=== PATIENT | male | born 1955 | race African-American/Black ===

== ENCOUNTER 2021-04-17 10:53 | Inpatient (IN) ==
[2021-04-17 15:49] LABS: Basophils % 0.4 % (0.0-0.8); Eosinophils # 0.2 10*3/uL (0.0-0.87); Hemoglobin 8.4 GM/DL (14.0-18.0); Immature Granulocytes % 0.5 %; Immature Granulocytes Absolute 0.05 #; Lymphocytes # 1.3 10*3/uL (1.4-4.0); Lymphocytes % 14.3 % (21.2-54.2); Mean Corpuscular HGB Conc 25.5 GM/DL (32-36); Mean Corpuscular Volume 75.7 FL (87-102); Mean Platelet Volume 9.1 FL (9.6-12.0); Monocytes % 6.1 % (1.7-12.7); Neutrophils % 76.7 % (38.7-73.9); Platelet Count 569 T/CUMM (130-400); Red Blood Count 4.36 MC/CUMM (3.8-5.5); Red Cell Distribution Width 20.8 % (9.3-17.3); White Blood Count 9.2 T/CUMM (4-12)
[2021-04-17 16:14] LABS: Albumin 2.4 G/DL (3.4-5.0); Bilirubin,Total 0.6 MG/DL (0.20-1.00); Calcium 9.2 MG/DL (8.5-10.1); Osmolality,Calculated 281.8 MOS/KG (273-304); Potassium 5.2 MMOL/L (3.5-5.1); Total Protein 8.2 G/DL (6.4-8.2)
[2021-04-17] MEDS ORDERED: GLUCAGON 1 MG VIAL IM PRN (17:38)
[2021-04-17] MEDS ORDERED: DEXTROSE 50% 25 GM/50 ML VIAL IV PRN (17:38)
[2021-04-17] MEDS ORDERED: SODIUM POLYSTYRENE SULFATE 15 GM/60 ML BOTTLE PO ONE (18:33)
[2021-04-17] MEDS ORDERED: SODIUM POLYSTYRENE SULFATE 15 GM/60 ML BOTTLE PO STA (18:33)
[2021-04-17 20:04] LABS: Bacteria,Urine Occasional /HPF (Few); Bilirubin,Urine Negative (Negative); Blood, Urine Moderate mg/dL (Negative); Glucose,Urine (UA) Negative (Negative); Hyaline Casts,Urine 1 /LPF (0-3); Ketones,Urine Negative (Negative); Mucus,Urine Occasional /LPF (Occasional); Nitrite,Urine Negative (Negative); Protein,Urine 30 MG/DL; RBC,Urine 3 /HPF (0-4); Squamous Epithelial Cell,Urine Occasional /HPF (0-10); Urine Appearance CLEAR (Clear); Urine Color Yellow (Yellow); Urine Specific Gravity 1.016 (1.001-1.035); Urine Urobilinogen < 2.0 EU/DL (0.2-1.0)
[2021-04-17] MEDS: ENOXAPARIN 40 MG/0.4 ML SYRINGE SUBCUT SCH (20:22)
[2021-04-17] MEDS: carvediloL 12.5 MG TABLET PO SCH (20:22)
[2021-04-17] MEDS: SODIUM CHLORIDE 0.9% 1,000 ML IV SCH (20:23)
[2021-04-17] MEDS: ONDANSETRON 4 MG/2 ML VIAL IV PRN (21:25)
[2021-04-18 07:41] LABS: % Iron Saturation 14.8 % (18-50); Ferritin 385.7 ng/ml (26-388)
[2021-04-18 08:01] LABS: Calcium 9.1 MG/DL (8.5-10.1); Osmolality,Calculated 288.4 MOS/KG (273-304); Potassium 4.8 MMOL/L (3.5-5.1); Risk Ratio 2.77; Thyroid Stimulating Hormone 1.91 uIU/ml (0.358-3.74); VLDL Cholesterol 9.6 MG/DL
[2021-04-18 08:06] LABS: Sedimentation Rate-Westergren 55 MM/HR (0-20)
[2021-04-18 08:22] LABS: Basophils % 0.3 % (0.0-0.8); Eosinophils # 0.2 10*3/uL (0.0-0.87); Eosinophils % 2.4 % (0.00-10.9); Hematocrit 29.1 VOL% (42.0-52.0); Hemoglobin 7.7 GM/DL (14.0-18.0); Immature Granulocytes % 0.6 %; Immature Granulocytes Absolute 0.04 #; Lymphocytes # 1.2 10*3/uL (1.4-4.0); Lymphocytes % 18.1 % (21.2-54.2); Mean Corpuscular HGB Conc 26.5 GM/DL (32-36); Mean Corpuscular Volume 74.2 FL (87-102); Mean Platelet Volume 8.8 FL (9.6-12.0); Monocytes % 8.7 % (1.7-12.7); Neutrophils % 69.9 % (38.7-73.9); Platelet Count 516 T/CUMM (130-400); Red Blood Count 3.92 MC/CUMM (3.8-5.5); Red Cell Distribution Width 20.8 % (9.3-17.3); White Blood Count 6.6 T/CUMM (4-12)
[2021-04-18 08:27] LABS: Platelet Estimate Increased
[2021-04-18 08:28] LABS: Anisocytosis 2+; Hypochromasia Slight
[2021-04-18] MEDS: PANTOPRAZOLE 40 MG TABLET PO SCH (09:09)
[2021-04-18] MEDS: carvediloL 12.5 MG TABLET PO SCH ×2 (09:09→20:47)
[2021-04-18] MEDS: SODIUM CHLORIDE 0.9% 1,000 ML IV SCH (09:14)
[2021-04-18 14:23] LABS: Folate 10.13 NG/ML (5.38-24.0); Vitamin B12 596 PG/ML (211-911)
[2021-04-18] MEDS: ENOXAPARIN 40 MG/0.4 ML SYRINGE SUBCUT SCH (18:50)
[2021-04-19] MEDS: SODIUM CHLORIDE 0.9% 1,000 ML IV SCH ×2 (03:59→11:00)
[2021-04-19 06:46] LABS: Calcium 8.9 MG/DL (8.5-10.1); Osmolality,Calculated 287.4 MOS/KG (273-304); Potassium 5.2 MMOL/L (3.5-5.1)
[2021-04-19 06:47] LABS: Basophils % 0.3 % (0.0-0.8); Eosinophils # 0.2 10*3/uL (0.0-0.87); Eosinophils % 3.3 % (0.00-10.9); Immature Granulocytes % 0.5 %; Immature Granulocytes Absolute 0.03 #; Lymphocytes # 1.1 10*3/uL (1.4-4.0); Lymphocytes % 18.8 % (21.2-54.2); Mean Corpuscular HGB Conc 26.4 GM/DL (32-36); Mean Corpuscular Volume 73.7 FL (87-102); Mean Platelet Volume 9.1 FL (9.6-12.0); Monocytes % 10.6 % (1.7-12.7); Neutrophils % 66.5 % (38.7-73.9); Platelet Count 467 T/CUMM (130-400); Red Cell Distribution Width 20.6 % (9.3-17.3); White Blood Count 6.1 T/CUMM (4-12)
[2021-04-19 06:51] LABS: Hemoglobin 7.4 GM/DL (14.0-18.0)
[2021-04-19] MEDS: carvediloL 12.5 MG TABLET PO SCH ×2 (09:01→21:21)
[2021-04-19] MEDS: PANTOPRAZOLE 40 MG TABLET PO SCH (09:01)
[2021-04-19] MEDS ORDERED: PNEUMOCOCCAL VACCINE (23 VALENT) 0.5 ML VIAL IM ONE (11:28)
[2021-04-19] MEDS ORDERED: SODIUM POLYSTYRENE SULFATE 15 GM/60 ML BOTTLE PO ONE (11:32)
[2021-04-19] MEDS: ONDANSETRON 4 MG/2 ML VIAL IV PRN (17:05)
[2021-04-19] MEDS: ENOXAPARIN 40 MG/0.4 ML SYRINGE SUBCUT SCH (17:55)
[2021-04-20 05:35] LABS: Osmolality,Calculated 288.3 MOS/KG (273-304); Potassium 5.1 MMOL/L (3.5-5.1)
[2021-04-20 05:58] LABS: Basophils % 0.4 % (0.0-0.8); Eosinophils # 0.3 10*3/uL (0.0-0.87); Eosinophils % 3.6 % (0.00-10.9); Hematocrit 28.8 VOL% (42.0-52.0); Hemoglobin 7.7 GM/DL (14.0-18.0); Immature Granulocytes % 0.4 %; Immature Granulocytes Absolute 0.03 #; Lymphocytes # 1.2 10*3/uL (1.4-4.0); Lymphocytes % 17.2 % (21.2-54.2); Mean Corpuscular HGB Conc 26.7 GM/DL (32-36); Mean Corpuscular Volume 74.8 FL (87-102); Mean Platelet Volume 9.1 FL (9.6-12.0); Monocytes % 9.2 % (1.7-12.7); Neutrophils % 69.2 % (38.7-73.9); Platelet Count 454 T/CUMM (130-400); Red Blood Count 3.85 MC/CUMM (3.8-5.5); Red Cell Distribution Width 20.6 % (9.3-17.3); White Blood Count 6.9 T/CUMM (4-12)
[2021-04-20 06:25] LABS: Hypochromasia 1+; Microcytosis 1+
[2021-04-20 06:26] LABS: Platelet Estimate Increased; Polychromasia Slight
[2021-04-20] MEDS ORDERED: SODIUM POLYSTYRENE SULFATE 15 GM/60 ML BOTTLE PO STA (07:46)
[2021-04-20 08:35] LABS: Hemoglobin A1 (Alkaline) 98.1 % (96.5-98.5); Hemoglobin A2 (Alkaline) 1.9 % (1.5-3.5)
[2021-04-20] MEDS: PANTOPRAZOLE 40 MG TABLET PO SCH (09:29)
[2021-04-20] MEDS: carvediloL 12.5 MG TABLET PO SCH ×2 (09:29→20:51)
[2021-04-20 09:33] LABS: INR 1.2; PT Patient Result 13.1 SECS (10.5-12.0)
[2021-04-20] MEDS ORDERED: DIAZEPAM 5 MG TABLET PO ONE (12:56)
[2021-04-21 05:58] LABS: Calcium 9.3 MG/DL (8.5-10.1); Osmolality,Calculated 277.8 MOS/KG (273-304); Potassium 4.5 MMOL/L (3.5-5.1)
[2021-04-21 06:02] LABS: Basophils % 0.3 % (0.0-0.8); Eosinophils # 0.2 10*3/uL (0.0-0.87); Eosinophils % 3.5 % (0.00-10.9); Hematocrit 29.5 VOL% (42.0-52.0); Hemoglobin 7.8 GM/DL (14.0-18.0); Immature Granulocytes % 0.6 %; Immature Granulocytes Absolute 0.04 #; Lymphocytes # 1.3 10*3/uL (1.4-4.0); Lymphocytes % 20.3 % (21.2-54.2); Mean Corpuscular HGB Conc 26.4 GM/DL (32-36); Mean Corpuscular Volume 74.9 FL (87-102); Monocytes % 9.2 % (1.7-12.7); Neutrophils % 66.1 % (38.7-73.9); Platelet Count 385 T/CUMM (130-400); Red Blood Count 3.94 MC/CUMM (3.8-5.5); Red Cell Distribution Width 20.5 % (9.3-17.3); White Blood Count 6.2 T/CUMM (4-12)
[2021-04-21 07:04] LABS: Anisocytosis 1+; Hypochromasia 1+; Microcytosis 1+
[2021-04-21 07:05] LABS: Platelet Estimate Normal
[2021-04-21 07:40] LABS: Eosinophils 5 % (0-10); Lymphocytes 21 % (20-55); Segmented Neutrophils 70 % (50-85); Total Cells Counted 100
[2021-04-21] MEDS: PANTOPRAZOLE 40 MG TABLET PO SCH (09:39)
[2021-04-21] MEDS: carvediloL 12.5 MG TABLET PO SCH (09:39)
[2021-04-21 12:23] VITALS: BP 126/67
== END 2021-04-21 13:30 | disposition home or self-care (01) | DRG 687 ==
LOC: N.ED 10:53 → N.EDINP 17:38 → N.4E 19:17
PROVIDERS: ADMIT Internal Medicine; ATTEND Internal Medicine

== ENCOUNTER 2021-08-02 11:57 | Observation (INO) ==
[2021-08-02] MEDS ORDERED: INSULIN REGULAR 100 UNIT/ML IV STA ×2 (13:49→16:32)
[2021-08-02] MEDS ORDERED: SODIUM BICARBONATE 50 MEQ/50 ML VIAL IV STA ×2 (13:49→16:33)
[2021-08-02] MEDS ORDERED: DEXTROSE 50% 25 GM/50 ML VIAL IV STA ×2 (13:49→16:32)
[2021-08-02] MEDS ORDERED: CALCIUM CHLORIDE 1,000 MG/10 ML SYRINGE IV STA ×2 (13:49→16:32)
[2021-08-02] MEDS ORDERED: SODIUM ZIRCONIUM CYCLOSILICATE 10 GM PACK PO STA ×2 (13:52→16:03)
[2021-08-02 15:52] LABS: Osmolality,Calculated 278.2 MOS/KG (273-304)
[2021-08-02 15:59] LABS: Basophils % 0.3 % (0.0-0.8); Eosinophils # 0.2 10*3/uL (0.0-0.87); Eosinophils % 3.1 % (0.00-10.9); Hematocrit 34.4 VOL% (42.0-52.0); Immature Granulocytes % 0.4 %; Immature Granulocytes Absolute 0.03 #; Lymphocytes # 1.2 10*3/uL (1.4-4.0); Lymphocytes % 15.1 % (21.2-54.2); Mean Corpuscular HGB Conc 26.2 GM/DL (32-36); Mean Corpuscular Volume 76.1 FL (87-102); Mean Platelet Volume 9.6 FL (9.6-12.0); Monocytes % 6.1 % (1.7-12.7); Platelet Count 528 T/CUMM (130-400); Red Blood Count 4.52 MC/CUMM (3.8-5.5); Red Cell Distribution Width 19.7 % (9.3-17.3); White Blood Count 7.8 T/CUMM (4-12)
[2021-08-02 16:13] LABS: Anisocytosis 1+; Platelet Estimate Increased
[2021-08-02] MEDS ORDERED: ONDANSETRON 4 MG/2 ML VIAL IV PRN (16:41)
[2021-08-02] MEDS ORDERED: ACETAMINOPHEN 325 MG TABLET PO PRN (16:41)
[2021-08-02] MEDS ORDERED: DOCUSATE SODIUM 100 MG CAPSULE PO PRN (16:41)
[2021-08-02] MEDS ORDERED: hydrALAZINE 20 MG/1 ML VIAL IV PRN (16:41)
[2021-08-02] MEDS ORDERED: GLUCAGON 1 MG VIAL IM PRN (16:41)
[2021-08-02] MEDS ORDERED: DEXTROSE 50% 25 GM/50 ML VIAL IV PRN (16:41)
[2021-08-02] MEDS ORDERED: MELATONIN 3 MG TABLET PO PRN (16:49)
[2021-08-02] MEDS ORDERED: oxyCODONE/ACETAMINOPHEN 5-325 MG TABLET PO PRN (16:52)
[2021-08-02] MEDS ORDERED: ENOXAPARIN 30 MG/0.3 ML SYRINGE SUBCUT SCH (17:00)
[2021-08-02 17:20] LABS: Risk Ratio 2.27; Thyroid Stimulating Hormone 1.44 uIU/ml (0.358-3.74); VLDL Cholesterol 10.4 MG/DL
[2021-08-02] MEDS ORDERED: SODIUM POLYSTYRENE SULFATE 15 GM/60 ML BOTTLE PO ONE (20:00)
[2021-08-02] MEDS ORDERED: carvediloL 25 MG TABLET PO SCH (21:00)
[2021-08-03 06:04] LABS: Calcium 10.2 MG/DL (8.5-10.1); Osmolality,Calculated 283.8 MOS/KG (273-304); Potassium 5.3 MMOL/L (3.5-5.1)
[2021-08-03 06:13] LABS: Basophils % 0.3 % (0.0-0.8); Eosinophils # 0.2 10*3/uL (0.0-0.87); Eosinophils % 3.1 % (0.00-10.9); Immature Granulocytes % 0.3 %; Immature Granulocytes Absolute 0.02 #; Lymphocytes # 1.3 10*3/uL (1.4-4.0); Lymphocytes % 18.3 % (21.2-54.2); Mean Corpuscular HGB Conc 26.5 GM/DL (32-36); Mean Corpuscular Volume 75.4 FL (87-102); Mean Platelet Volume 9.3 FL (9.6-12.0); Monocytes % 7.6 % (1.7-12.7); Neutrophils % 70.4 % (38.7-73.9); Platelet Count 468 T/CUMM (130-400); Red Blood Count 4.11 MC/CUMM (3.8-5.5); Red Cell Distribution Width 19.3 % (9.3-17.3); White Blood Count 6.8 T/CUMM (4-12)
[2021-08-03 06:14] LABS: Hemoglobin 8.2 GM/DL (14.0-18.0)
[2021-08-03] MEDS ORDERED: ASPIRIN EC 81 MG TABLET PO SCH (09:00)
[2021-08-03] MEDS ORDERED: SODIUM ZIRCONIUM CYCLOSILICATE 10 GM PACK PO SCH ×3 (09:00)
[2021-08-03] MEDS ORDERED: PANTOPRAZOLE 40 MG TABLET PO SCH (09:00)
[2021-08-03 09:31] VITALS: BP 134/67
== END 2021-08-03 11:03 | disposition home or self-care (01) ==
LOC: N.ED 11:57 → N.EDINP 11:57 → N.2W 20:04
PROVIDERS: ADMIT Internal Medicine; ATTEND Internal Medicine

== ENCOUNTER 2022-11-04 02:08 | Inpatient (IN) ==
[2022-11-04] MEDS ORDERED: SODIUM CHLORIDE 0.9% 1,000 ML IV STA ×2 (02:27→03:10)
[2022-11-04 02:49] LABS: Basophils % 0.1 % (0.0-0.8); Eosinophils % 0.1 % (0.00-10.9); Hematocrit 30.2 VOL% (42.0-52.0); Hemoglobin 7.2 GM/DL (14.0-18.0); INR 1.2; Immature Granulocytes % 1.4 %; Immature Granulocytes Absolute 0.14 #; Lymphocytes % 9.9 % (21.2-54.2); Mean Corpuscular HGB Conc 23.8 GM/DL (32-36); Mean Corpuscular Volume 90.4 FL (87-102); Monocytes # 0.3 10*3/uL (0.11-0.8); Monocytes % 2.6 % (1.7-12.7); NRBC # 0.34 10*3/uL; Neutrophils % 85.9 % (38.7-73.9); PT Patient Result 12.6 SECS (10.1-12.1); Partial Thromboplastin Time 31.3 SECS (23.7-32.9); Platelet Count 585 T/CUMM (130-400); Red Blood Count 3.34 MC/CUMM (3.8-5.5); Red Cell Distribution Width 22.4 % (9.3-17.3); White Blood Count 10.36 T/CUMM (4-12)
[2022-11-04 02:56] LABS: Arterial Base Excess iSTAT -18 MMOL/L (-2.5-2.5); Arterial Bicarbonate iSTAT 11.3 MMOL/L (20-26); Arterial O2 Saturation iSTAT 94 % (95-100); Arterial PCO2 iSTAT 40 MM HG (35-48); Arterial PO2 iSTAT 98 MM HG (80-95); Arterial Total CO2 iSTAT 13 MMO/L (23-27); Arterial pH iSTAT 7.063 (7.35-7.45)
[2022-11-04] MEDS ORDERED: ETOMIDATE 20 MG/10 ML VIAL IV ONE (02:57)
[2022-11-04] MEDS ORDERED: ROCURONIUM 100 MG/10 ML VIAL IV ONE (02:57)
[2022-11-04] MEDS ORDERED: NOREPINEPHRINE 4 MG/4 ML VIAL IV ONE (02:59)
[2022-11-04] MEDS: NOREPINEPHRINE DRIP 8 MG/250 ML PREMIX IV PRN ×2 (03:03→15:47)
[2022-11-04] MEDS ORDERED: ETOMIDATE 20 MG/10 ML VIAL IV STA (03:11)
[2022-11-04] MEDS ORDERED: ROCURONIUM 100 MG/10 ML VIAL IV STA (03:11)
[2022-11-04 03:16] LABS: Alanine Aminotransferase 13 U/L (16-61); Albumin 1.7 G/DL (3.4-5.0); Alkaline Phosphatase 209 U/L (45-117); Aspartate Amino Transferase 16 U/L (0-37); Bilirubin,Total < 0.39 MG/DL (0.20-1.00); Blood Urea Nitrogen 84 MG/DL (7-18); Calcium 8.3 MG/DL (8.5-10.1); Carbon Dioxide 14 MMOL/L (21-32); Chloride 112 MMOL/L (98-107); Glucose 132 MG/DL (74-106); Osmolality,Calculated 293.4 MOS/KG (273-304); Sodium 133 MMOL/L (136-145); Total Protein 6.7 G/DL (6.4-8.2)
[2022-11-04 03:18] LABS: Potassium > 10.0 MMOL/L (3.5-5.1)
[2022-11-04] MEDS ORDERED: INSULIN REGULAR 100 UNIT/ML IV STA (03:19)
[2022-11-04] MEDS ORDERED: DEXTROSE 50% 25 GM/50 ML VIAL IV STA (03:19)
[2022-11-04] MEDS ORDERED: SODIUM POLYSTYRENE SULFATE 15 GM/60 ML BOTTLE PO STA ×2 (03:19→06:03)
[2022-11-04] MEDS ORDERED: DEXTROSE 50% 25 GM/50 ML SYRINGE IV ONE (03:20)
[2022-11-04] MEDS ORDERED: CALCIUM GLUCONATE RIDER 1,000 MG/50 ML PREMIX IV ONE ×3 (03:21→06:15)
[2022-11-04] MEDS ORDERED: SODIUM BICARBONATE 50 MEQ/50 ML VIAL IV ONE (03:21)
[2022-11-04] MEDS ORDERED: DEXTROSE 50% 25 GM/50 ML SYRINGE IV STA (03:23)
[2022-11-04] MEDS ORDERED: SODIUM BICARBONATE 50 MEQ/50 ML VIAL IV STA (03:23)
[2022-11-04] MEDS ORDERED: ALBUTEROL 2.5 MG/3 ML NEB RESP TX PRN (04:48)
[2022-11-04] MEDS ORDERED: SODIUM CHLORIDE 0.9% 1,000 ML IV SCH (05:00)
[2022-11-04 05:18] LABS: Arterial Base Excess iSTAT -11 MMOL/L (-2.5-2.5); Arterial O2 Saturation iSTAT 100 % (95-100); Arterial PCO2 iSTAT 49 MM HG (35-48); Arterial PO2 iSTAT 433 MM HG (80-95); Arterial Total CO2 iSTAT 19 MMO/L (23-27); Arterial pH iSTAT 7.145 (7.35-7.45)
[2022-11-04] MEDS ORDERED: FUROSEMIDE 100 MG/10 ML VIAL IV STA (05:48)
[2022-11-04] MEDS: SODIUM ZIRCONIUM CYCLOSILICATE 10 GM PACK PO SCH ×3 (06:08→20:50)
[2022-11-04] MEDS: SODIUM BICARB INJ 150 MEQ in DEXTROSE 5% 1,000 ML IV SCH ×2 (06:29→17:54)
[2022-11-04] MEDS ORDERED: SODIUM CHLORIDE 0.9% 1,000 ML IV PRN (06:34)
[2022-11-04] MEDS: ENOXAPARIN 30 MG/0.3 ML SYRINGE SUBCUT SCH (08:06)
[2022-11-04] MEDS: MORPHINE 2 MG/1 ML SYRINGE IV PRN (08:06)
[2022-11-04] MEDS ORDERED: PANTOPRAZOLE 40 MG TABLET PO SCH (09:00)
[2022-11-04] MEDS ORDERED: MIDAZOLAM DRIP 100 MG/100 ML PREMIX IV PRN (10:58)
[2022-11-04] MEDS ORDERED: INSULIN REGULAR 10 UNIT, CALCIUM GLUCONATE 1,000 MG in DEXTROSE 10% 250 ML IV ONE ×2 (11:24→17:45)
[2022-11-04] MEDS ORDERED: FUROSEMIDE 100 MG/10 ML VIAL IV SCH (12:00)
[2022-11-04] MEDS ORDERED: FUROSEMIDE IV SCH (12:00)
[2022-11-04] MEDS ORDERED: SODIUM CHLORIDE 0.9% IV SCH (12:00)
[2022-11-04] MEDS: SODIUM CHLORIDE 0.9% IV SCH ×2 (12:01→20:49)
[2022-11-04] MEDS: FUROSEMIDE IV SCH ×2 (12:01→20:49)
[2022-11-05] MEDS: SODIUM CHLORIDE 0.9% IV SCH (03:53)
[2022-11-05] MEDS: FUROSEMIDE IV SCH (03:53)
[2022-11-05 04:05] LABS: Arterial Base Excess iSTAT -1 MMOL/L (-2.5-2.5); Arterial Bicarbonate iSTAT 22.7 MMOL/L (20-26); Arterial O2 Saturation iSTAT 100 % (95-100); Arterial PCO2 iSTAT 33 MM HG (35-48); Arterial PO2 iSTAT 167 MM HG (80-95); Arterial Total CO2 iSTAT 24 MMO/L (23-27); Arterial pH iSTAT 7.448 (7.35-7.45)
[2022-11-05] MEDS: SODIUM BICARB INJ 150 MEQ in DEXTROSE 5% 1,000 ML IV SCH (04:35)
[2022-11-05] MEDS: NOREPINEPHRINE DRIP 8 MG/250 ML PREMIX IV PRN ×2 (04:37→19:10)
[2022-11-05 06:09] LABS: Alanine Aminotransferase 10 U/L (16-61); Albumin 1.4 G/DL (3.4-5.0); Alkaline Phosphatase 196 U/L (45-117); Aspartate Amino Transferase 11 U/L (0-37); Bilirubin,Total < 0.39 MG/DL (0.20-1.00); Blood Urea Nitrogen 76 MG/DL (7-18); Calcium 8.3 MG/DL (8.5-10.1); Carbon Dioxide 22 MMOL/L (21-32); Chloride 102 MMOL/L (98-107); Glucose 124 MG/DL (74-106); Osmolality,Calculated 291.2 MOS/KG (273-304); Potassium 4.9 MMOL/L (3.5-5.1); Sodium 134 MMOL/L (136-145); Total Protein 6.7 G/DL (6.4-8.2)
[2022-11-05 06:17] LABS: Basophils % 0.2 % (0.0-0.8); Eosinophils # 0.1 10*3/uL (0.0-0.87); Eosinophils % 0.7 % (0.00-10.9); Hematocrit 26.7 VOL% (42.0-52.0); Immature Granulocytes % 1.2 %; Immature Granulocytes Absolute 0.16 #; Lymphocytes % 15.1 % (21.2-54.2); Mean Corpuscular HGB Conc 26.2 GM/DL (32-36); Mean Corpuscular Volume 85.3 FL (87-102); Mean Platelet Volume 9.5 FL (9.6-12.0); Monocytes # 1.3 10*3/uL (0.11-0.8); Monocytes % 9.9 % (1.7-12.7); NRBC # 0.23 10*3/uL; Neutrophils % 72.9 % (38.7-73.9); Red Blood Count 3.13 MC/CUMM (3.8-5.5); Red Cell Distribution Width 22.1 % (9.3-17.3); White Blood Count 13.18 T/CUMM (4-12)
[2022-11-05 06:21] LABS: Platelet Count 451 T/CUMM (130-400)
[2022-11-05] MEDS: SODIUM ZIRCONIUM CYCLOSILICATE 10 GM PACK PO SCH (08:14)
[2022-11-05] MEDS: PANTOPRAZOLE 40 MG VIAL IV SCH (08:14)
[2022-11-05] MEDS: ENOXAPARIN 30 MG/0.3 ML SYRINGE SUBCUT SCH (08:14)
[2022-11-05] MEDS ORDERED: MAGNESIUM SULF RIDER 1 GM/100 ML PREMIX IV ONE (09:21)
[2022-11-05] MEDS: MORPHINE 2 MG/1 ML SYRINGE IV PRN ×2 (09:49→15:51)
[2022-11-05] MEDS: DEXAMETHASONE 0.5 MG TABLET PER TUBE SCH (10:30)
[2022-11-05] MEDS: SODIUM BICARB INJ 50 MEQ in DEXTROSE 5% 1,000 ML IV SCH (10:30)
[2022-11-05] MEDS: MAGNESIUM HYDROXIDE SUSP 30 ML UDCUP PO SCH (20:52)
[2022-11-06] MEDS: MORPHINE 2 MG/1 ML SYRINGE IV PRN ×3 (02:03→17:05)
[2022-11-06 04:13] LABS: Arterial Base Excess iSTAT 3 MMOL/L (-2.5-2.5); Arterial Bicarbonate iSTAT 27.2 MMOL/L (20-26); Arterial O2 Saturation iSTAT 99 % (95-100); Arterial PCO2 iSTAT 40 MM HG (35-48); Arterial PO2 iSTAT 144 MM HG (80-95); Arterial Total CO2 iSTAT 28 MMO/L (23-27)
[2022-11-06 06:08] LABS: Basophils % 0.1 % (0.0-0.8); Eosinophils # 0.1 10*3/uL (0.0-0.87); Eosinophils % 0.5 % (0.00-10.9); Hemoglobin 7.2 GM/DL (14.0-18.0); Immature Granulocytes Absolute 0.13 #; Lymphocytes # 1.9 10*3/uL (1.4-4.0); Lymphocytes % 14.6 % (21.2-54.2); Mean Corpuscular HGB Conc 25.5 GM/DL (32-36); Mean Corpuscular Volume 85.7 FL (87-102); Mean Platelet Volume 9.2 FL (9.6-12.0); Monocytes # 1.2 10*3/uL (0.11-0.8); Monocytes % 9.4 % (1.7-12.7); NRBC # 0.12 10*3/uL; Neutrophils % 74.4 % (38.7-73.9); Platelet Count 407 T/CUMM (130-400); Red Blood Count 3.29 MC/CUMM (3.8-5.5); White Blood Count 12.94 T/CUMM (4-12)
[2022-11-06 06:09] LABS: Hematocrit 28.2 VOL% (42.0-52.0)
[2022-11-06] MEDS: SODIUM BICARB INJ 50 MEQ in DEXTROSE 5% 1,000 ML IV SCH ×2 (06:10→08:41)
[2022-11-06 06:19] LABS: Alanine Aminotransferase < 9 U/L (16-61); Albumin 1.4 G/DL (3.4-5.0); Alkaline Phosphatase 182 U/L (45-117); Aspartate Amino Transferase 12 U/L (0-37); Blood Urea Nitrogen 74 MG/DL (7-18); Calcium 8.1 MG/DL (8.5-10.1); Carbon Dioxide 24 MMOL/L (21-32); Chloride 97 MMOL/L (98-107); Glucose 150 MG/DL (74-106); Osmolality,Calculated 286.7 MOS/KG (273-304); Potassium 4.7 MMOL/L (3.5-5.1); Sodium 131 MMOL/L (136-145); Total Protein 6.8 G/DL (6.4-8.2)
[2022-11-06] MEDS: PANTOPRAZOLE 40 MG VIAL IV SCH (08:11)
[2022-11-06] MEDS: MAGNESIUM HYDROXIDE SUSP 30 ML UDCUP PO SCH ×2 (08:11→20:16)
[2022-11-06] MEDS: DEXAMETHASONE 0.5 MG TABLET PER TUBE SCH (08:11)
[2022-11-06] MEDS: ENOXAPARIN 30 MG/0.3 ML SYRINGE SUBCUT SCH (08:11)
[2022-11-06] MEDS: SODIUM BICARBONATE 650 MG TABLET PER TUBE SCH ×2 (08:40→20:17)
[2022-11-06] MEDS: NOREPINEPHRINE DRIP 8 MG/250 ML PREMIX IV PRN (12:58)
[2022-11-07] MEDS: NOREPINEPHRINE DRIP 8 MG/250 ML PREMIX IV PRN ×2 (02:24→14:07)
[2022-11-07 03:16] LABS: Arterial Base Excess iSTAT 5 MMOL/L (-2.5-2.5); Arterial Bicarbonate iSTAT 29.7 MMOL/L (20-26); Arterial O2 Saturation iSTAT 99 % (95-100); Arterial PCO2 iSTAT 44 MM HG (35-48); Arterial PO2 iSTAT 114 MM HG (80-95); Arterial Total CO2 iSTAT 31 MMO/L (23-27); Arterial pH iSTAT 7.442 (7.35-7.45)
[2022-11-07] MEDS: MORPHINE 2 MG/1 ML SYRINGE IV PRN ×2 (06:14→13:12)
[2022-11-07 06:20] LABS: Alanine Aminotransferase < 9 U/L (16-61); Albumin 1.4 G/DL (3.4-5.0); Alkaline Phosphatase 195 U/L (45-117); Aspartate Amino Transferase 8 U/L (0-37); Basophils % 0.2 % (0.0-0.8); Blood Urea Nitrogen 75 MG/DL (7-18); Carbon Dioxide 27 MMOL/L (21-32); Chloride 100 MMOL/L (98-107); Eosinophils # 0.1 10*3/uL (0.0-0.87); Eosinophils % 1.2 % (0.00-10.9); Glucose 162 MG/DL (74-106); Hematocrit 26.7 VOL% (42.0-52.0); Hemoglobin 6.9 GM/DL (14.0-18.0); Immature Granulocytes % 0.8 %; Immature Granulocytes Absolute 0.09 #; Lymphocytes # 1.5 10*3/uL (1.4-4.0); Lymphocytes % 12.8 % (21.2-54.2); Mean Corpuscular HGB Conc 25.8 GM/DL (32-36); Mean Corpuscular Volume 85.6 FL (87-102); Mean Platelet Volume 9.4 FL (9.6-12.0); Monocytes # 1.1 10*3/uL (0.11-0.8); Monocytes % 9.4 % (1.7-12.7); Neutrophils % 75.6 % (38.7-73.9); Platelet Count 445 T/CUMM (130-400); Potassium 5.1 MMOL/L (3.5-5.1); Red Blood Count 3.12 MC/CUMM (3.8-5.5); Sodium 136 MMOL/L (136-145); Total Protein 6.9 G/DL (6.4-8.2); White Blood Count 11.83 T/CUMM (4-12)
[2022-11-07] MEDS: ENOXAPARIN 30 MG/0.3 ML SYRINGE SUBCUT SCH (08:10)
[2022-11-07] MEDS: DEXAMETHASONE 0.5 MG TABLET PER TUBE SCH (08:10)
[2022-11-07] MEDS: SODIUM BICARBONATE 650 MG TABLET PER TUBE SCH ×2 (08:10→20:48)
[2022-11-07] MEDS: PANTOPRAZOLE 40 MG VIAL IV SCH (08:10)
[2022-11-07] MEDS: MAGNESIUM HYDROXIDE SUSP 30 ML UDCUP PO SCH ×2 (08:10→20:48)
[2022-11-07] MEDS: dexmedeTOMIDine DRIP 400 MCG/100 ML PREMIX IV PRN ×2 (12:58→21:37)
[2022-11-07] MEDS: FUROSEMIDE 40 MG/4 ML VIAL IV SCH (15:46)
[2022-11-08] MEDS: NOREPINEPHRINE DRIP 8 MG/250 ML PREMIX IV PRN ×2 (00:58→12:29)
[2022-11-08 04:45] LABS: Arterial Base Excess iSTAT 6 MMOL/L (-2.5-2.5); Arterial Bicarbonate iSTAT 30.6 MMOL/L (20-26); Arterial O2 Saturation iSTAT 97 % (95-100); Arterial PCO2 iSTAT 43 MM HG (35-48); Arterial PO2 iSTAT 83 MM HG (80-95); Arterial Total CO2 iSTAT 32 MMO/L (23-27); Arterial pH iSTAT 7.456 (7.35-7.45)
[2022-11-08 06:17] LABS: Phosphorous 5.4 MG/DL (2.5-4.9)
[2022-11-08 06:36] LABS: Alanine Aminotransferase < 9 U/L (16-61); Albumin 1.4 G/DL (3.4-5.0); Alkaline Phosphatase 234 U/L (45-117); Aspartate Amino Transferase 10 U/L (0-37); Blood Urea Nitrogen 82 MG/DL (7-18); Calcium 8.8 MG/DL (8.5-10.1); Carbon Dioxide 28 MMOL/L (21-32); Chloride 98 MMOL/L (98-107); Glucose 159 MG/DL (74-106); Osmolality,Calculated 300.8 MOS/KG (273-304); Sodium 137 MMOL/L (136-145); Total Protein 7.5 G/DL (6.4-8.2)
[2022-11-08 06:47] LABS: Basophils % 0.3 % (0.0-0.8); Eosinophils # 0.2 10*3/uL (0.0-0.87); Eosinophils % 1.2 % (0.00-10.9); Hematocrit 28.4 VOL% (42.0-52.0); Immature Granulocytes % 1.2 %; Immature Granulocytes Absolute 0.17 #; Lymphocytes # 1.9 10*3/uL (1.4-4.0); Lymphocytes % 12.8 % (21.2-54.2); Mean Corpuscular HGB Conc 25.7 GM/DL (32-36); Mean Corpuscular Volume 87.7 FL (87-102); Mean Platelet Volume 9.5 FL (9.6-12.0); Monocytes # 1.3 10*3/uL (0.11-0.8); Monocytes % 8.7 % (1.7-12.7); NRBC # 0.06 10*3/uL; Neutrophils % 75.8 % (38.7-73.9); Platelet Count 438 T/CUMM (130-400); Red Blood Count 3.24 MC/CUMM (3.8-5.5); Red Cell Distribution Width 22.4 % (9.3-17.3); White Blood Count 14.47 T/CUMM (4-12)
[2022-11-08 06:49] LABS: Hemoglobin 7.3 GM/DL (14.0-18.0)
[2022-11-08] MEDS: FUROSEMIDE 40 MG/4 ML VIAL IV SCH (08:11)
[2022-11-08] MEDS: ENOXAPARIN 30 MG/0.3 ML SYRINGE SUBCUT SCH (08:11)
[2022-11-08] MEDS: PANTOPRAZOLE 40 MG VIAL IV SCH (08:11)
[2022-11-08] MEDS: MAGNESIUM HYDROXIDE SUSP 30 ML UDCUP PO SCH (08:11)
[2022-11-08] MEDS: DEXAMETHASONE 0.5 MG TABLET PER TUBE SCH (08:12)
[2022-11-08] MEDS: MORPHINE 2 MG/1 ML SYRINGE IV PRN ×2 (08:12→12:30)
[2022-11-08] MEDS: SODIUM BICARBONATE 650 MG TABLET PER TUBE SCH ×2 (08:12→20:21)
[2022-11-08] MEDS ORDERED: ACETAMINOPHEN 325 MG/10.15 ML UDCUP PO PRN (10:35)
[2022-11-08 10:49] LABS: Amorphous Crystals,Urine Occasional /HPF (Few); Bacteria,Urine Occasional /HPF (Few); Hyaline Casts,Urine 1 /LPF (0-3); Mucus,Urine Occasional /LPF (Occasional)
[2022-11-08 10:50] LABS: Bilirubin,Urine Negative (Negative); Blood, Urine Trace mg/dL (Negative); Glucose,Urine (UA) Negative (Negative); Ketones,Urine Negative (Negative); Nitrite,Urine Negative (Negative); Protein,Urine 30 mg/dL (Negative); Urine Appearance Clear (Clear); Urine Color Yellow (Yellow); Urine Urobilinogen 0.2 eU/dL (<2.0)
[2022-11-08] MEDS ORDERED: LACTATED RINGERS 500 ML IV ONE (11:56)
[2022-11-09 04:20] LABS: Calcium 9.1 MG/DL (8.5-10.1); Osmolality,Calculated 295.2 MOS/KG (273-304); Potassium 4.6 MMOL/L (3.5-5.1)
[2022-11-09 04:32] LABS: Basophils % 0.2 % (0.0-0.8); Eosinophils # 0.2 10*3/uL (0.0-0.87); Eosinophils % 0.9 % (0.00-10.9); Immature Granulocytes % 1.1 %; Lymphocytes % 11.1 % (21.2-54.2); Mean Corpuscular HGB Conc 25.4 GM/DL (32-36); Mean Corpuscular Volume 88.7 FL (87-102); Mean Platelet Volume 9.7 FL (9.6-12.0); Monocytes # 1.3 10*3/uL (0.11-0.8); Monocytes % 7.1 % (1.7-12.7); NRBC # 0.03 10*3/uL; Neutrophils % 79.6 % (38.7-73.9); Platelet Count 449 T/CUMM (130-400); Red Blood Count 2.84 MC/CUMM (3.8-5.5); Red Cell Distribution Width 22.5 % (9.3-17.3); White Blood Count 18.25 T/CUMM (4-12)
[2022-11-09 04:36] LABS: Hemoglobin 6.4 GM/DL (14.0-18.0)
[2022-11-09 04:37] LABS: Hematocrit 25.2 VOL% (42.0-52.0)
[2022-11-09] MEDS: ENOXAPARIN 30 MG/0.3 ML SYRINGE SUBCUT SCH (09:00)
[2022-11-09] MEDS: SODIUM BICARBONATE 650 MG TABLET PER TUBE SCH ×2 (09:01→20:41)
[2022-11-09] MEDS: MAGNESIUM HYDROXIDE SUSP 30 ML UDCUP PO SCH (09:01)
[2022-11-09] MEDS: PANTOPRAZOLE 40 MG TABLET PO SCH (09:01)
[2022-11-09] MEDS: DEXAMETHASONE 0.5 MG TABLET PER TUBE SCH (09:01)
[2022-11-09] MEDS: FUROSEMIDE 40 MG TABLET PO SCH (09:09)
[2022-11-09] MEDS: MORPHINE 2 MG/1 ML SYRINGE IV PRN ×2 (10:54→20:41)
[2022-11-09] MEDS: ZALEPLON 5 MG CAPSULE PO PRN (20:41)
[2022-11-10 04:27] LABS: Calcium 8.8 MG/DL (8.5-10.1); Potassium 4.5 MMOL/L (3.5-5.1)
[2022-11-10 04:46] LABS: Basophils % 0.2 % (0.0-0.8); Eosinophils # 0.1 10*3/uL (0.0-0.87); Eosinophils % 1.1 % (0.00-10.9); Hematocrit 26.8 VOL% (42.0-52.0); Hemoglobin 7.2 GM/DL (14.0-18.0); Immature Granulocytes % 0.9 %; Immature Granulocytes Absolute 0.11 #; Lymphocytes # 1.4 10*3/uL (1.4-4.0); Lymphocytes % 11.3 % (21.2-54.2); Mean Corpuscular HGB Conc 26.9 GM/DL (32-36); Mean Platelet Volume 9.3 FL (9.6-12.0); Monocytes % 7.7 % (1.7-12.7); NRBC # 0.03 10*3/uL; Neutrophils % 78.8 % (38.7-73.9); Platelet Count 397 T/CUMM (130-400); Red Blood Count 3.08 MC/CUMM (3.8-5.5); Red Cell Distribution Width 21.1 % (9.3-17.3); White Blood Count 12.45 T/CUMM (4-12)
[2022-11-10 05:12] LABS: Hypochromia 1+
[2022-11-10 05:13] LABS: Anisocytosis 1+; Microcytosis 1+; Polychromasia Slight
[2022-11-10] MEDS: PANTOPRAZOLE 40 MG TABLET PO SCH (08:51)
[2022-11-10] MEDS: SODIUM BICARBONATE 650 MG TABLET PER TUBE SCH ×2 (08:51→20:16)
[2022-11-10] MEDS: DEXAMETHASONE 0.5 MG TABLET PER TUBE SCH (08:51)
[2022-11-10] MEDS: ENOXAPARIN 30 MG/0.3 ML SYRINGE SUBCUT SCH (08:51)
[2022-11-10] MEDS: FUROSEMIDE 40 MG TABLET PO SCH (08:51)
[2022-11-10] MEDS: MAGNESIUM HYDROXIDE SUSP 30 ML UDCUP PO SCH (08:51)
[2022-11-10] MEDS: MORPHINE 2 MG/1 ML SYRINGE IV PRN ×2 (09:06→20:15)
[2022-11-10] MEDS ORDERED: DOCUSATE SODIUM 100 MG CAPSULE PO PRN (19:17)
[2022-11-10] MEDS: ZALEPLON 5 MG CAPSULE PO PRN (20:16)
[2022-11-11 03:56] LABS: Calcium 8.8 MG/DL (8.5-10.1); Potassium 4.2 MMOL/L (3.5-5.1)
[2022-11-11 04:15] LABS: Basophils % 0.3 % (0.0-0.8); Eosinophils # 0.1 10*3/uL (0.0-0.87); Eosinophils % 1.2 % (0.00-10.9); Hematocrit 26.9 VOL% (42.0-52.0); Immature Granulocytes % 0.9 %; Immature Granulocytes Absolute 0.09 #; Lymphocytes # 1.5 10*3/uL (1.4-4.0); Lymphocytes % 14.9 % (21.2-54.2); Mean Corpuscular Volume 87.9 FL (87-102); Mean Platelet Volume 9.5 FL (9.6-12.0); Monocytes # 0.9 10*3/uL (0.11-0.8); Monocytes % 8.7 % (1.7-12.7); NRBC # 0.02 10*3/uL; Platelet Count 395 T/CUMM (130-400); Red Blood Count 3.06 MC/CUMM (3.8-5.5); Red Cell Distribution Width 21.2 % (9.3-17.3); White Blood Count 9.92 T/CUMM (4-12)
[2022-11-11 04:21] LABS: Hypochromia 2+
[2022-11-11 04:22] LABS: Anisocytosis 1+; Microcytosis 1+; Ovalocytes Slight; Platelet Estimate Normal; Polychromasia Slight
[2022-11-11] MEDS: ENOXAPARIN 30 MG/0.3 ML SYRINGE SUBCUT SCH (08:54)
[2022-11-11] MEDS: MAGNESIUM HYDROXIDE SUSP 30 ML UDCUP PO SCH (08:54)
[2022-11-11] MEDS: SODIUM BICARBONATE 650 MG TABLET PER TUBE SCH ×2 (08:54→20:16)
[2022-11-11] MEDS: PANTOPRAZOLE 40 MG TABLET PO SCH (08:55)
[2022-11-11] MEDS: FUROSEMIDE 40 MG TABLET PO SCH (08:55)
[2022-11-11] MEDS: DEXAMETHASONE 0.5 MG TABLET PER TUBE SCH (08:55)
[2022-11-11] MEDS: MORPHINE 2 MG/1 ML SYRINGE IV PRN (11:12)
[2022-11-11] MEDS ORDERED: PHENYLEPH/MINERAL OIL/PETROLAT 57 GM TUBE TOP PRN (11:15)
[2022-11-12 06:41] LABS: Basophils % 0.3 % (0.0-0.8); Eosinophils # 0.1 10*3/uL (0.0-0.87); Eosinophils % 1.4 % (0.00-10.9); Hematocrit 27.1 VOL% (42.0-52.0); Immature Granulocytes % 0.9 %; Immature Granulocytes Absolute 0.08 #; Lymphocytes # 1.6 10*3/uL (1.4-4.0); Lymphocytes % 16.6 % (21.2-54.2); Mean Corpuscular HGB Conc 25.8 GM/DL (32-36); Mean Platelet Volume 9.6 FL (9.6-12.0); Monocytes # 0.9 10*3/uL (0.11-0.8); Monocytes % 9.2 % (1.7-12.7); Neutrophils % 71.6 % (38.7-73.9); Platelet Count 387 T/CUMM (130-400); Red Blood Count 3.08 MC/CUMM (3.8-5.5); Red Cell Distribution Width 20.7 % (9.3-17.3); White Blood Count 9.36 T/CUMM (4-12)
[2022-11-12 07:11] LABS: Hypochromia 2+; Microcytosis 1+
[2022-11-12 07:12] LABS: Ovalocytes Slight; Platelet Estimate Normal; Polychromasia Slight
[2022-11-12 07:16] LABS: Calcium 8.4 MG/DL (8.5-10.1); Osmolality,Calculated 297.7 MOS/KG (273-304); Potassium 4.6 MMOL/L (3.5-5.1)
[2022-11-12] MEDS: MAGNESIUM HYDROXIDE SUSP 30 ML UDCUP PO SCH (08:25)
[2022-11-12] MEDS: SODIUM BICARBONATE 650 MG TABLET PER TUBE SCH ×2 (08:25→20:38)
[2022-11-12] MEDS: ENOXAPARIN 30 MG/0.3 ML SYRINGE SUBCUT SCH (08:25)
[2022-11-12] MEDS: DEXAMETHASONE 0.5 MG TABLET PER TUBE SCH (08:25)
[2022-11-12] MEDS: FUROSEMIDE 40 MG TABLET PO SCH (08:25)
[2022-11-12] MEDS: PANTOPRAZOLE 40 MG TABLET PO SCH (08:25)
[2022-11-12] MEDS: MORPHINE 2 MG/1 ML SYRINGE IV PRN (08:31)
[2022-11-12] MEDS ORDERED: fentaNYL 25 MCG/HR PATCH TRANSDERM SCH (09:00)
[2022-11-12 13:40] LABS: Hematocrit 27.9 VOL% (42.0-52.0); Hemoglobin 7.3 GM/DL (14.0-18.0)
[2022-11-12] MEDS ORDERED: LACTULOSE 20 GM/30 ML UDCUP PO ONE (14:09)
[2022-11-13 08:52] VITALS: BP 95/42
[2022-11-13] MEDS: FUROSEMIDE 40 MG TABLET PO SCH ×2 (09:07→09:12)
[2022-11-13] MEDS: PANTOPRAZOLE 40 MG TABLET PO SCH (09:07)
[2022-11-13] MEDS: SODIUM BICARBONATE 650 MG TABLET PER TUBE SCH (09:07)
[2022-11-13] MEDS: DEXAMETHASONE 0.5 MG TABLET PER TUBE SCH (09:07)
[2022-11-13] MEDS: ENOXAPARIN 30 MG/0.3 ML SYRINGE SUBCUT SCH (09:08)
== END 2022-11-13 13:57 | disposition hospice, home (50) | DRG 207 ==
LOC: N.ED 02:08 → N.EDINP 04:48 → SUATTDRO 04:48 → N.CC 05:51 → N.2E 11-11 10:45
PROVIDERS: ADMIT Internal Medicine; ATTEND Internal Medicine